=== PATIENT | male | born 1990 | race Caucasian/White ===

== ENCOUNTER 2019-07-07 23:14 | Emergency (ER) | payer OTHER ==
[~2019-07-07] VITALS: Ht 180.3 cm; Wt 65.8 kg
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
[2019-07-07 23:15] VITALS: BP 128/82
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
[2019-07-07] MEDS ORDERED: Haloperidol 5mg/ml Inj IM ONE (23:30)
[2019-07-08 00:13] VITALS: BP 128/82
--- NOTE | 2019-07-08 00:13 | NUR ---
ER DISCHARGE NOTE: Patient is cleared to be discharged per ERMD, pt is aox4, on room air, with stable vital signs. pt was given dc and prescription instructions, pt was able to verbalize understanding, pt id band removed without complications. pt is able to ambulate with steady gait. pt took all belongings.
== END 2019-07-08 00:13 ==
LOC: EDBD 23:14 → EMR 23:40
DX: F23 Brief psychotic disorder (principal); F12.90 Cannabis use, unspecified, uncomplicated
CPT/HCPCS: 80307; 96372; 99283; J1630